=== PATIENT | female | born 1960 | race Caucasian/White ===

== ENCOUNTER 2018-01-16 12:48 | Emergency (ER) | payer MEDICAID, SELFPAY ==
[2018-01-16 12:54] VITALS: BP 116/89; PULSE 59; RESP 14; TEMP 37.3; O2SAT 96
--- NOTE | 2018-01-16 13:04 | W.ED.GENAD ---
Discharge Plan Disposition Patient Disposition: HOME Condition: Good Discharge Details Chief Complaint: SutureRem Clinical Impression: Visit for suture removal, Wound infection ED Provider: Eliezer Rahman Home Meds and New Rx's Prescriptions: New cephalexin 500 mg capsule 500 mg PO TID Qty: 15 RF: 0 Discharge Instructions Instructions: Wound Infection (ED) Medical Decision Making pt had plastic surgery face lift 8 hours away last week and didn't want to drive back down there. Just moved to [place] recently so came here for suture removal, states she had uncomplicated face lift. I removed 4 running sutures, 2 behind each ear. The area around the right posterior ear is red more than I would expect with normal healing so will start cephalexin. Differential Diagnosis suture removal, cellulitis HPI General Mode of arrival: ambulatory. Date/Time Provider Initiated Documentation: 01/16/18 12:49. Limitations to Documentation: no limitations. Information obtained by: patient. History of Present Illness 57 year old F presents to the emergency department with the chief complaint of suture removal, described as mild, with intensity rated at 2. and is localized to the head. and it has been constant. Patient notes no other symptoms.. Related Data Home Medications Medication Instructions Recorded Confirmed cephalexin 500 mg PO TID #15 cap 01/16/18 Previous Rx's Medication Instructions Recorded cephalexin 500 mg PO TID #15 cap 01/16/18 General Stated Complaint: SutureRem VERA: 4 Review of Systems Review of Systems All systems reviewed & are unremarkable except as noted in HPI and below Constitutional Denies chills, Denies fever(s) and Denies weakness Eyes Denies loss of vision ENT Denies change in voice Cardiovascular Denies chest pain and Denies dyspnea Respiratory Denies dyspnea Gastrointestinal Denies abdominal pain, Denies nausea and Denies vomiting Genitourinary Denies dysuria Musculoskeletal Denies joint swelling Integumentary/Breasts Denies rash Neurologic Denies loss of vision and Denies weakness Endocrine Denies cold intolerance and Denies heat intolerance Allergic/Immunologic Denies urticaria [facility] Social History Smoking/Tobacco Use Status: Current every day Exam Const General: no acute distress Orientation: alert HENMT Head: normal to inspection Ears: external ears normal General nose exam: external nose normal Mouth: moist mucous membranes Eyes General: appearance normal, both eyes and all related structures Neck Neck: normal visual inspection Resp Effort & Inspection: normal respiratory effort and able to speak in complete sentences Cardio Rate: regular rate Skin General skin exam: elasticity normal Neuro General: alert and oriented x3 Extrem General: normal to inspection Psych Mental Status: mental status grossly normal Course Respiratory Effort 01/16/18 12:55 Oxygen Delivery Method Hi Flow Nasal Cannula 01/16/18 12:54
--- NOTE | 2018-01-16 13:09 | ED.GENADUL_ITS ---
Discharge Plan Disposition Patient Disposition: HOME Condition: Good Discharge Details Chief Complaint: SutureRem Clinical Impression: Visit for suture removal, Wound infection ED Provider: Eliezer Rahman Home Meds and New Rx's Prescriptions: New cephalexin 500 mg capsule 500 mg PO TID Qty: 15 RF: 0 Discharge Instructions Instructions: Wound Infection (ED) Medical Decision Making pt had plastic surgery face lift 8 hours away last week and didn't want to drive back down there. Just moved to [place] recently so came here for suture removal , states she had uncomplicated face lift. I removed 4 running sutures, 2 behind each ear. The area around the right posterior ear is red more than I would expect with normal healing so will start cephalexin. Differential Diagnosis suture removal, cellulitis HPI General Mode of arrival: ambulatory . Date/Time Provider Initiated Documentation: 01/16/18 12:49 . Limitations to Documentation: no limitations . Information obtained by: patient . History of Present Illness 57 year old F presents to the emergency department with the chief complaint of suture removal, described as mild, with intensity rated at 2. and is localized to the head. and it has been constant. Patient notes no other symptoms.. Related Data Home Medications Medication Instructions Recorded Confirmed cephalexin 500 mg PO TID #15 cap 01/16/18 Previous Rx's Medication Instructions Recorded cephalexin 500 mg PO TID #15 cap 01/16/18 General Stated Complaint: SutureRem VERA: 4 Review of Systems Review of Systems All systems reviewed & are unremarkable except as noted in HPI and below Constitutional Denies chills, Denies fever(s) and Denies weakness Eyes Denies loss of vision ENT Denies change in voice Cardiovascular Denies chest pain and Denies dyspnea Respiratory Denies dyspnea Gastrointestinal Denies abdominal pain, Denies nausea and Denies vomiting Genitourinary Denies dysuria Musculoskeletal Denies joint swelling Integumentary/Breasts Denies rash Neurologic Denies loss of vision and Denies weakness Endocrine Denies cold intolerance and Denies heat intolerance Allergic/Immunologic Denies urticaria [facility] Social History Smoking/Tobacco Use Status: Current every day Exam Const General: no acute distress Orientation: alert HENMT Head: normal to inspection Ears: external ears normal General nose exam: external nose normal Mouth: moist mucous membranes Eyes General: appearance normal, both eyes and all related structures Neck Neck: normal visual inspection Resp Effort & Inspection: normal respiratory effort and able to speak in complete sentences Cardio Rate: regular rate Skin General skin exam: elasticity normal Neuro General: alert and oriented x3 Extrem General: normal to inspection Psych Mental Status: mental status grossly normal Course Respiratory Effort 01/16/18 12:55 Oxygen Delivery Method Hi Flow Nasal Cannula 01/16/18 12:54
[2018-01-16 13:17] VITALS: BP 116/89; PULSE 59; RESP 14; TEMP 37.3; O2SAT 96
== END 2018-01-16 13:17 | disposition home or self-care (01) ==
PROVIDERS: Emergency Provider Emergency Medicine
DX: T81.41XA Infection following a procedure, superficial incisional surgical site, initial encounter (principal); S01.01XS Laceration without foreign body of scalp, sequela; X58.XXXS Exposure to other specified factors, sequela; Z48.02 Encounter for removal of sutures
CPT/HCPCS: 99283